=== PATIENT | male | born 1970 | race Hispanic/Latino ===

== ENCOUNTER 2017-02-20 10:15 | Emergency (ER) | payer OTHER ==
[2017-02-20 10:27] VITALS: BP 118/67; PULSE 62; RESP 19; TEMP 97.1; O2SAT 100
[2017-02-20] MEDS ORDERED: Tmp-Smz 800 mg-160 mg DS Tab PO STA (10:40)
[2017-02-20] MEDS ORDERED: Tmp-Smz 800 mg-160 mg DS Tab ONE (10:49)
--- NOTE | 2017-02-20 11:46 | ED PDOC ---
Lower Extremity Pain/Injury Time Seen by Provider: 02/20/17 10:26 Chief Complaint (Nursing): Lower Extremity Problem/Injury Chief Complaint (Provider): Lower legs bilaterally History Per: Patient History/Exam Limitations: no limitations Onset/Duration Of Symptoms: Days Current Symptoms Are (Timing): Still Present Additional Complaint(s): 46 y/o male presents to the emergency department with a chronic varicose pain to the lower legs bilaterally. Describes the anterior lower legs feels like a burning sensation. Reports he walks around a lot because he is homeless. Denies any further medical complaints. Past Medical History Reviewed: Historical Data, Nursing Documentation, Vital Signs Vital Signs: Last Vital Signs Temp 97.1 F L 02/20/17 10:24 Pulse 62 02/20/17 10:24 Resp 19 02/20/17 10:24 BP 118/67 02/20/17 10:24 Pulse Ox 100 02/20/17 10:24 - Medical History PMH: Anxiety, Depression - Family History Family History: States: Unknown Family Hx - Social History Current smoker - smoking cessation education provided: Yes (Current Some Days Smoker) Alcohol: Social Drugs: Denies - Home Medications Home Medications: Ambulatory Orders Medication Instructions Recorded Naproxen [Naprosyn] 500 mg PO BID #20 tablet 09/04/15 Compression Socks, Medium [Futuro 1 each MC DAILY #1 each 02/20/17 Restoring] Naproxen [Naprosyn] 500 mg PO BID PRN #15 tablet 02/20/17 Sulfamethoxazole/Trimethoprim 1 tab PO BID #14 tab 02/20/17 [Bactrim DS 800 mg-160 mg] - Allergies Allergies/Adverse Reactions: Allergies Allergy/AdvReac Type Severity Reaction Status Date / Time No Known Allergies Allergy Verified 09/04/15 12:31 Review of Systems ROS Statement: Except As Marked, All Systems Reviewed And Found Negative Musculoskeletal: Positive for: Leg Pain (B/l ) Physical Exam - Reviewed Nursing Documentation Reviewed: Yes Vital Signs Reviewed: Yes - Physical Exam Appears: Positive for: Non-toxic, No Acute Distress Head Exam: Positive for: ATRAUMATIC, NORMAL INSPECTION, NORMOCEPHALIC Skin: Positive for: Normal Color, Warm, Dry Extremity: Positive for: Normal ROM, Other (Varicosity of the lower legs bilaterally. Right lower anterior leg indurating interiorly with superficial scratch. ). Negative for: Deformity (Crepitus, fluctuance, or active bleeding. ) Neurologic/Psych: Positive for: Alert, Oriented (x3) - ECG O2 Sat by Pulse Oximetry: 100 (RA) Pulse Ox Interpretation: Normal Medical Decision Making Medical Decision Making: Time: 10:40 Initial impression: Thrombophlebitis vs cellulitis Initial plan: --Motrin 600 mg PO --Bactrim DS Tab --Duplex Lower Extrm US --Reevaluation Time: 12:51 --Duplex US FINDINGS: COMMON FEMORAL VEIN: Right CFV: Unremarkable. Left CFV: Unremarkable. SUPERFICIAL FEMORAL VEIN: Right SFV: Unremarkable. Left SFV: Unremarkable. POPLITEAL VEIN: Right Popliteal: Unremarkable. Left Popliteal: Unremarkable. POSTERIOR TIBIAL VEIN: Right PTV: Unremarkable. Left PTV: Unremarkable. OTHER FINDINGS: Incidental note is made of varicose veins in the subcutaneous fat at the anterior lower right leg as well as at the left lower leg subcutaneous fat overlying the calf muscles which exhibit no color Doppler blood flow or compressibility and contain increased echogenicity in the lumen compatible with thrombosed varicose veins indeterminate age. IMPRESSION: 1. No evidence of deep venous thrombosis bilateral lower extremities. 2. Multifocal thrombosed varicose veins in the subcutaneous fat of the anterior distal right lower leg and overlying the calf muscles at the left lower leg. Time: 13:03 Patient is medically stable, and requires no further treatment in the ED at this time. Patient will be discharged home with Rx for Compression Socks, and Naprosyn 500 mg. Counseling was provided and all questions were answered regarding diagnosis and need for follow up with referred clinic. There is agreement to discharge plan. Return if symptoms persist or worsen. Clinical Impression: Superficial Vein Thrombosis Scribe Attestation: Documented by Vira Marquez, acting as a scribe for Teresa Stevens MD. Provider Scribe Attestation: All medical record entries made by the Scribe were at my direction and personally dictated by me. I have reviewed the chart and agree that the record accurately reflects my personal performance of the history, physical exam, medical decision making, and the department course for this patient. I have also personally directed, reviewed, and agree with the discharge instructions and disposition. Disposition - Clinical Impression Clinical Impression: Superficial vein thrombosis - Patient ED Disposition Is Patient to be Admitted: No Counseled Patient/Family Regarding: Studies Performed, Diagnosis, Need For Followup - Disposition Referrals: [facility] [Outside] Disposition: Routine/Home Disposition Time: 13:03 Condition: STABLE Prescriptions: Compression Socks, Medium [Futuro Restoring] 1 each MC DAILY #1 each Naproxen [Naprosyn] 500 mg PO BID PRN #15 tablet PRN Reason: Pain, Moderate (4-7) Sulfamethoxazole/Trimethoprim [Bactrim DS 800 mg-160 mg] 1 tab PO BID #14 tab Instructions: Superficial Thrombophlebitis (ED) Forms: [employer] [facility] ([place])
--- NOTE | 2017-02-20 12:53 | US ---
PROCEDURE: Bilateral lower extremity venous duplex Doppler. HISTORY: Bilateral varicocities COMPARISON: None available. TECHNIQUE: Bilateral common femoral, superficial femoral, popliteal and posterior tibial veins were evaluated. Flow was assessed with color Doppler, compressibility, assessment of phasic flow and augmentation response. FINDINGS: COMMON FEMORAL VEIN: Right CFV: Unremarkable. Left CFV: Unremarkable. SUPERFICIAL FEMORAL VEIN: Right SFV: Unremarkable. Left SFV: Unremarkable. POPLITEAL VEIN: Right Popliteal: Unremarkable. Left Popliteal: Unremarkable. POSTERIOR TIBIAL VEIN: Right PTV: Unremarkable. Left PTV: Unremarkable. OTHER FINDINGS: Incidental note is made of varicose veins in the subcutaneous fat at the anterior lower right leg as well as at the left lower leg subcutaneous fat overlying the calf muscles which exhibit no color Doppler blood flow or compressibility and contain increased echogenicity in the lumen compatible with thrombosed varicose veins indeterminate age. IMPRESSION: 1. No evidence of deep venous thrombosis bilateral lower extremities. 2. Multifocal thrombosed varicose veins in the subcutaneous fat of the anterior distal right lower leg and overlying the calf muscles at the left lower leg.
== END 2017-02-20 13:17 | disposition home or self-care (01) ==
LOC: H.ER 10:15
DX: I82.819 Embolism and thrombosis of superficial veins of unspecified lower extremity (principal)

== ENCOUNTER 2017-03-26 18:51 | Emergency (ER) | payer OTHER ==
[2017-03-26 19:04] VITALS: BP 126/90; PULSE 76; RESP 16; TEMP 97.8; O2SAT 100
--- NOTE | 2017-03-26 19:44 | ED PDOC ---
Upper Extremity Pain/Injury Time Seen by Provider: 03/26/17 18:58 Chief Complaint (Nursing): Finger,Hand,&Wrist Chief Complaint (Provider): RIGHT hand "pins and needles" History Per: Patient History/Exam Limitations: no limitations Onset/Duration Of Symptoms: Days (3 days, woke up with it), Persistent Current Symptoms Are (Timing): Still Present Severity: Mild Additional Complaint(s): Woke up with "pins and needles" to dorsum of RIGHT hand 3 days ago and it hasn' t resolved. Admits that he sleeps on his right side, and because he is in a homeless senior care, sleep position also not typically comfortable or optimal. No weakness. No known trauma. No headache, neck pain, elbow pain or shoulder pain. No swelling. RHD> PMD; None Past Medical History Reviewed: Historical Data, Nursing Documentation, Vital Signs Vital Signs: Last Vital Signs Temp 97.8 F 03/26/17 19:00 Pulse 76 03/26/17 19:00 Resp 16 03/26/17 19:00 BP 126/90 03/26/17 19:00 Pulse Ox 100 03/26/17 19:00 - Medical History PMH: Anxiety, Depression - Family History Family History: States: Unknown Family Hx - Social History Current smoker - smoking cessation education provided: Yes Alcohol: None Drugs: Denies - Home Medications Home Medications: Ambulatory Orders Medication Instructions Recorded Naproxen [Naprosyn] 500 mg PO BID #20 tablet 09/04/15 Compression Socks, Medium [Futuro 1 each MC DAILY #1 each 02/20/17 Restoring] Naproxen [Naprosyn] 500 mg PO BID PRN #15 tablet 02/20/17 Sulfamethoxazole/Trimethoprim 1 tab PO BID #14 tab 02/20/17 [Bactrim DS 800 mg-160 mg] Ibuprofen [Motrin Tab] 600 mg PO Q8 #21 tab 03/26/17 - Allergies Allergies/Adverse Reactions: Allergies Allergy/AdvReac Type Severity Reaction Status Date / Time No Known Allergies Allergy Verified 09/04/15 12:31 Review of Systems ROS Statement: Except As Marked, All Systems Reviewed And Found Negative (and as per HPI) Musculoskeletal: Negative for: Neck Pain, Shoulder Pain, Arm Pain, Back Pain, Hand Pain, Leg Pain, Foot Pain Neurological: Negative for: Weakness, Numbness Physical Exam - Reviewed Nursing Documentation Reviewed: Yes Vital Signs Reviewed: Yes - Physical Exam Appears: Positive for: Non-toxic, No Acute Distress Head Exam: Positive for: ATRAUMATIC, NORMOCEPHALIC Skin: Positive for: Warm, Dry Neck: Positive for: Painless ROM, Supple Pulses-Radial (R): 2+ Extremity: Positive for: Other (RIGHT hand: No deformity, swelling or skin abnormalities. 5/5 thumb opposition, thumb abduction, and finger abduction. Light touch intact in all nerve distributions of the hand.) Lymphatic: Negative for: Adenopathy Neurologic/Psych: Negative for: Motor/Sensory Deficits - ECG O2 Sat by Pulse Oximetry: 100 Disposition - Clinical Impression Clinical Impression: Right hand paresthesia Counseled Patient/Family Regarding: Diagnosis, Need For Followup, Rx Given, Smoking Cessation - Disposition Referrals: [facility] [Outside] - 03/29/17 (FOLLOW UP AT CLINIC IN 2-3 DAYS TO SEE HOW YOU ARE DOING) Disposition: Routine/Home Disposition Time: 19:00 Condition: GOOD Prescriptions: Ibuprofen [Motrin Tab] 600 mg PO Q8 #21 tab Instructions: Peripheral Neuropathy (ED), Paresthesia (ED)
== END 2017-03-26 19:49 | disposition home or self-care (01) ==
LOC: H.ER 18:51
DX: R20.2 Paresthesia of skin (principal); F32.9 Major depressive disorder, single episode, unspecified; F41.9 Anxiety disorder, unspecified